=== PATIENT | female | born 1945 | race Two or more races ===

== ENCOUNTER 2024-05-25 21:33 | Emergency (ER) | payer MEDICARE, OTHER ==
[~2024-05-25] VITALS: Ht 152.4 cm; Wt 45.4 kg
[2024-05-25 21:43] VITALS: BP 133/61; TEMP 99; O2SAT 100
[2024-05-25] MEDS ORDERED: IBUPROFEN 400 MG TABLET ONE (23:01)
[2024-05-25] MEDS: IBUPROFEN 400 MG TABLET PO ONE (23:01)
== END 2024-05-25 23:24 ==
LOC: EDSEX 21:35 → ER 21:35
DX: S43.491A Other sprain of right shoulder joint, initial encounter (principal); E03.9 Hypothyroidism, unspecified; J44.9 Chronic obstructive pulmonary disease, unspecified; K21.9 Gastro-esophageal reflux disease without esophagitis; X58.XXXA Exposure to other specified factors, initial encounter; Y93.89 Activity, other specified; Y92.89 Other specified places as the place of occurrence of the external cause; Y99.8 Other external cause status
CPT/HCPCS: 73030-TC